=== PATIENT | male | born 1975 | race Caucasian/White ===

== ENCOUNTER 2020-12-08 08:50 | Emergency (ER) | payer BC ==
--- NOTE | 2020-12-12 13:05 | EDM.PDOC ---
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 Patient's one and only complaint is a slight cough. Patient said he had gradual onset of this cough over the last few days. Patient denies chest pain, shortness of breath, syncope/near syncope, nausea vomiting, constipation or diarrhea, fever, sore throat,. Duration: Day(s): - Related Data Allergies Allergy/AdvReac Type Severity Reaction Status Date / Time No Known Allergies Allergy Verified 12/08/20 09:51 Home Meds: Home Meds NK [No Known Home Meds] 12/08/20 [History] Past Medical History - Past Health History Medical/Surgical History: Denies Medical/Surgical History Social & Family History - Family History Family Medical History: No Pertinent Family History - Tobacco Use Tobacco Use Status *Q: Never Tobacco User - Recreational Drug Use Recreational Drug Use: No ED ROS GENERAL - Review of Systems Review Of Systems: Comprehensive ROS is negative, except as noted in HPI. ED EXAM, GENERAL - Physical Exam Exam: See Below Free Text/Narrative:: 45-year-old male presents to the ED in the parking lot patient was found standi ng, alert and oriented 3/3 GCS 4 5 6, skin is pink warm and dry. Speaking in full sentences Exam Limited By: No Limitations General Appearance: Alert, WD/WN, No Apparent Distress Eye Exam: Bilateral Eye: EOMI Ears: Hearing Grossly Normal Nose: No Blood. No: Nasal Drainage, Clear Rhinorrhea Throat/Mouth: Normal Lips, Normal Voice, No Airway Compromise Head: Atraumatic, Normocephalic Neck: Other (No obvious deformity.) Respiratory/Chest: No Respiratory Distress, No Accessory Muscle Use GI/Abdominal: No Distention Neurological: Alert, Oriented, Normal Cognition, Normal Gait Psychiatric: Normal Affect, Normal Mood Skin Exam: Warm, Dry, Normal Color Course - Vital Signs Last Recorded V/S: Last Vital Signs Temp 98.2 F 12/08/20 08:55 Pulse 87 12/08/20 08:55 Resp 18 09/11/21 08:55 BP Pulse Ox 97 12/08/20 08:55 - Orders/Labs/Meds Labs: Laboratory Tests 12/08/20 Range/Units 09:10 SARS-CoV-2 RNA ([facility]) Negative (NEGATIVE) Departure - Departure Time of Disposition: 10:25 Disposition: Home, Self-Care 01 Condition: Good Clinical Impression: Cough - Discharge Information *PRESCRIPTION DRUG MONITORING PROGRAM REVIEWED*: No *COPY OF PRESCRIPTION DRUG MONITORING REPORT IN PATIENT GEOVANNI: No Instructions: COVID-19 Frequently Asked Questions Referrals: PCP,None [Primary Care Provider] - Forms: ED Department Discharge Additional Instructions: Discharge home. Do not work tomorrow. Call or return to the ER if you have any concerns. Sepsis Event Note (ED) - Evaluation Sepsis Screening Result: No Definite Risk - Assessment/Plan Assessment:: Assessment is most likely a upper respiratory viral infection, postnasal drip. Noting the absence of any other accompanying symptoms such as shortness of breath, fevers, malaise, decreased appetite, sore throat. Plan: Plan for patient to include Covid test which was negative. 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 Patient asked for a note to provide his March, which was provided. Patient was advised to return to the ER if patient develops any further symptoms beyond the cough or his cough gets worse. Patient also advised to come in on Thursday of the following week if he still has a slight cough to be tested again for Covid prior to his sikh services on Thursday. Patient was in stable condition, patient was given instructions for symptomatic care, patient understood and agreed.
== END 2020-12-08 10:25 | disposition home or self-care (01) ==
LOC: LB.ED 08:50
DX: R05 Cough (principal); Z20.822 Contact with and (suspected) exposure to COVID-19
CPT/HCPCS: 99283; U0002